=== PATIENT | female | born 1970 | race Caucasian/White ===

== ENCOUNTER → 2017-04-27 | Day surgery (SDC) | payer BC ==
[~2017-04-27] VITALS: Ht 165.1 cm; Wt 111.1 kg
[~2017-04-27] MED LIST: ADDERALL30 MG PO; ARMOUR THYROID90 M1 PO; DITROPAN XL10 MG PO; MOTRIN800 MG PO; SYNTHROID,LEVO75 MCG PO; VICODIN ES 7501 TAB PO; ZOLOFT50 MG PO
--- NOTE | ~2017-04-27 | O ---
[place], [place] OPERATIVE NOTE NAME: MARIA ISABEL DUKE UNIT #: [id number] ROOM: DOCTOR: PINKY SINGH MD BIRTHDATE: [birth year] DOS: 04/27/2017 The patient is a 46-year-old who has presented with colon screening. ALLERGIES: PENICILLIN, BIAXIN. FAMILY HISTORY: Consistent with colon CA in mother. PAST MEDICAL HISTORY: ADHD, hypothyroidism. PAST SURGICAL HISTORY: [place] teeth and tubal. SOCIAL HISTORY: Smoker and social alcohol consumer. PROCEDURE: The patient has presented with colonic screening. Today's procedure part of investigation is colonoscopy plus polypectomy x 2. PREMEDICATION: Versed and Diprivan. SCOPE: Olympus forward-viewing colonoscope 10L video. REPORT: After putting the patient in left lateral position, application of lubricant to the scope, the scope was introduced. Thereafter, under direct visualization, I advanced through the length of colon without difficulty. Colon mucosa and vascularity carefully examined. Base of cecum explored. Appendiceal orifice identified, ileocecal valve was defined. The patient was extubated to the level of hepatic flexure to sessile polypoid lesion and hepatic flexure with piecemeal polypectomy removed. Diverticulosis of left-sided colon and transverse colon identified, photographed. Air was suctioned out. The patient extubated, tolerated procedure well. IMPRESSION: Diverticulosis, sessile colonic polyp, hepatic flexure, status post piecemeal polypectomy x 2. PLAN: High fiber fruit diet. ACTIVITY: Ad uyen. FOLLOWUP: Routinely with you in office, p.r.n. visit with us in [facility]. Thank you very much indeed for your kind referral. ADDENDUM: This patient's last name has changed from Jairo to Roverto and recently she got . Therefore, for correction of all notes and records from this point on. [place], [place] OPERATIVE NOTE NAME: MARIA ISABEL DUKE UNIT #: [id number] ROOM: DOCTOR: PINKY SINGH MD BIRTHDATE: [birth year] PINKY SINGH MD CM:OPRECORD:OPERATIVE NOTE 1252 1310 PINKY SINGH MD 04/27/17 1311 interface
[2017-04-27 11:00] VITALS: BP 126/71
[2017-04-27 12:45] VITALS: BP 109/61
[2017-04-27 13:00] VITALS: BP 113/70
== END | disposition home or self-care (01) ==
LOC: SDC 04-25 08:45
DX: Z12.11 Encounter for screening for malignant neoplasm of colon (principal); D12.3 Benign neoplasm of transverse colon; K57.30 Diverticulosis of large intestine without perforation or abscess without bleeding; Z80.0 Family history of malignant neoplasm of digestive organs; E03.9 Hypothyroidism, unspecified; Z98.890 Other specified postprocedural states; I10 Essential (primary) hypertension; Z98.51 Tubal ligation status; F17.210 Nicotine dependence, cigarettes, uncomplicated; Z88.0 Allergy status to penicillin; Z88.1 Allergy status to other antibiotic agents

== ENCOUNTER → 2019-12-13 | Outpatient (CLI) | payer BC | END | disposition home or self-care (01) | LOC: COVID19 04:43 | DX: R05 Cough (principal); R43.8 Other disturbances of smell and taste; Z20.828 Contact with and (suspected) exposure to other viral communicable diseases ==